=== PATIENT | male | born 1960 ===

== ENCOUNTER 2021-05-25 01:48 | Outpatient (CLI) | payer MEDICAID, SELFPAY ==
--- NOTE | 2021-05-25 14:30 | DI.MRI_ITS ---
Exam(s) MR LUMBAR SPINE WO EXAM: MR LUMBAR SPINE WO CLINICAL HISTORY: LOW BACK PAIN, M54.50. TECHNIQUE: Multiplanar multisequence MRI was performed. COMPARISON: No exams were available for comparison FINDINGS: MR examination lumbosacral spine was performed according to the usual protocol. There are Shayna disca l vertebral signal changes consistent with disc degeneration, particularly at L4-5 and L5-S1. There is loss of disc height, again particularly at L4-5 and L5-S1, consistent with disc degeneration. There are moderate hypertrophic degenerative changes of the facet joints throughout the lumbar region . Conus medullaris appears intact. No significant findings from T11-12 through L2-3 levels. No centra l canal spinal stenosis, neural foraminal stenosis, or disc herniation at these levels. No significant findings at L3-4 are except for question slight left neural foraminal narrowing. No d isc herniation. At L4-5, there is prominent disc bulge without focal disc herniation. Question mild neural foraminal narrowing right and left. No central canal spinal stenosis. At L5-S1 there is no evidence of a disc herniation, or central canal spinal stenosis. There appears to be mild bilateral neural foraminal narrowing. IMPRESSION: Degenerative changes, possible mild multilevel neural foraminal narrowing, please see above discussio n for findings at individual levels. DATA REPOSITORY:
== END 2021-05-25 02:08 ==
PROVIDERS: Visit Provider Registered Nurse
DX: M54.59 Other low back pain (principal); M48.061 Spinal stenosis, lumbar region without neurogenic claudication; M51.36 Other intervertebral disc degeneration, lumbar region
CPT/HCPCS: 72148

== ENCOUNTER → 2024-09-09 10:45 | Outpatient (BNVA) | payer MEDICARE, SELFPAY | PROVIDERS: PCP Registered Nurse; Referring Provider Registered Nurse; Visit Provider Nurse Practitioner Gerontology | DX: N40.1 Benign prostatic hyperplasia with lower urinary tract symptoms (principal); N13.8 Other obstructive and reflux uropathy; J45.909 Unspecified asthma, uncomplicated; R39.9 Unspecified symptoms and signs involving the genitourinary system | CPT/HCPCS: 99205; 81002; 51798 ==

== ENCOUNTER → 2025-01-26 08:26 | Outpatient (BNVA) | payer MEDICARE, SELFPAY | PROVIDERS: PCP Registered Nurse; Referring Provider Registered Nurse; Visit Provider Nurse Practitioner Gerontology | DX: N40.1 Benign prostatic hyperplasia with lower urinary tract symptoms (principal); N13.8 Other obstructive and reflux uropathy; R35.1 Nocturia | CPT/HCPCS: 99213 ==